=== PATIENT | male | born 1980 | race Caucasian/White ===

== ENCOUNTER 2016-12-11 12:13 | Emergency (ER) | payer OTHER, BC ==
[2016-12-11 12:48] VITALS: RESP 18; TEMP 97.4
[2016-12-11 13:25] LABS: HIV ANTIBODY NEGATIVE (N); HIV-1 P24 ANTIGEN NEGATIVE (N)
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
[2016-12-12 09:55] LABS: HEPATITIS B SURF AB QL Positive (())
== END 2016-12-11 12:56 | disposition home or self-care (01) ==
LOC: ER 12:13
DX: Z77.21 Contact with and (suspected) exposure to potentially hazardous body fluids (principal); Y99.0 Civilian activity done for income or pay
CPT/HCPCS: 86703; 86706; 99282

== ENCOUNTER 2018-11-30 09:15 | Inpatient (IN) ==
[2018-11-30] MEDS ORDERED: ONDANSETRON 4 MG/2 ML VIAL IVP ONE (09:36)
[2018-11-30] MEDS ORDERED: Sodium Chloride 0.9% 1,000 ML PRIMARY IV ONE ×3 (09:36→10:19)
[2018-11-30] MEDS ORDERED: ONDANSETRON 4 MG/2 ML VIAL ONE (09:40)
[2018-11-30 09:52] LABS: BASOPHILS # (AUTO) 0.01 10*3/UL; BASOPHILS % (AUTO) 0.1 % (0-1); EOSINOPHILS # (AUTO) 0 10*3/UL; EOSINOPHILS % (AUTO) 0 % (0-8); Hematocrit [HCT] 48.1 % (42.0-52.0); Hemoglobin [HGB] 17.3 g/dL (14.0-18.0); LYMPHOCYTES # (AUTO) 0.47 10*3/uL; MEAN CORPUSCULAR HEMOGLOBIN 30.8 PG (27-31); MEAN CORPUSCULAR VOLUME 85.7 FL (80-90); MEAN PLATELET VOLUME 11.3 FL (7.4-12.2); MONOCYTES # (AUTO) 1.06 10*3/UL (0.3-0.8); MONOCYTES % (AUTO) 6.6 % (5-15); NEUTROPHILS % (AUTO) 90.1 % (50-80); RED BLOOD COUNT 5.61 10^6/uL (4.70-6.10)
[2018-11-30] MEDS ORDERED: Metoclopramide Inj 10 MG/2 ML VIAL IVP ONE (10:03)
[2018-11-30 10:04] LABS: BLOOD UREA NITROGEN 18 mg/dL (7-22); SERUM ALBUMIN 5.1 g/dL (3.5-4.8)
[2018-11-30 10:08] LABS: PLATELET MORPHOLOGY COMMENT NORMAL MORPHOLOGY (NORM); RBC MORPHOLOGY COMMENT NORMAL MORPHOLOGY (NORM); WBC MORPHOLOGY COMMENT NORMAL MORPHOLOGY (NORM)
[2018-11-30 10:51] LABS: BILIRUBIN,URINE NEGATIVE (NEG); CLARITY,URINE CLEAR (CLEAR); COLOR,URINE YELLOW (Y); GLUCOSE, URINE (UA) NEGATIVE (NEG); OCCULT BLOOD,URINE NEGATIVE (NEG); PH,URINE >=9.0 (5.0-8.5); PROTEIN,URINE 30 mg/dl (NEG)
--- NOTE | 2018-11-30 11:04 | DI ---
EXAM: CT Abdomen and Pelvis With Intravenous Contrast CLINICAL HISTORY: Abdominal pain and vomiting. TECHNIQUE: Axial computed tomography images of the abdomen and pelvis with intravenous contrast. 75 cc of Isovue-300 IV contrast. Coronal and sagittal images were obtained and reviewed. COMPARISON: CT abdomen and pelvis dated 09/17/15 FINDINGS: Lung bases: Unremarkable. No consolidation. No effusions. ABDOMEN: Liver: Unremarkable. No mass. Gallbladder and bile ducts: Unremarkable. No calcified stones. No ductal dilation. Pancreas: Unremarkable. No mass. No ductal dilation. Spleen: Unremarkable. No splenomegaly. Adrenals: Unremarkable. No mass. Kidneys and ureters: Unremarkable. No solid mass. No hydronephrosis. Stomach and bowel: Mild diffuse fluid distention of small bowel loops with scattered air-fluid levels, which may represent mild ileus or enteritis. No evidence of bowel obstruction. No focal bowel wall thickening. The colon appears unremarkable. GE junction and stomach appear unremarkable. PELVIS: Appendix: The appendix appears normal. Bladder: Unremarkable. No visible stones. Reproductive: The prostate gland and seminal vesicles appear unremarkable. ABDOMEN and PELVIS: Intraperitoneal space: Unremarkable. No free air. No significant fluid collection. Bones/joints: No acute fracture. No dislocation. Soft tissues: Unremarkable. Vasculature: Unremarkable. No abdominal aortic aneurysm. Lymph nodes: Unremarkable. No enlarged lymph nodes. IMPRESSION: Mild diffuse fluid distention of small bowel loops with scattered air- fluid levels, which may represent mild ileus or enteritis. No evidence of bowel obstruction. No focal bowel wall thickening.
[2018-11-30 11:08] LABS: URINE SAMPLE TYPE CLEAN CATCH URINE
[2018-11-30] MEDS ORDERED: MORPHINE SULFATE 4 MG/1 ML IVP ONE (12:04)
[2018-11-30] MEDS ORDERED: MORPHINE SULFATE 4 MG/1 ML ONE (12:06)
--- NOTE | 2018-11-30 12:16 | PDOC ---
Past Medical History Tobacco Use: Never Smoker In the Past 12 Months, Have Used or Abuse Any of the Following Substance: None Medication / Allergies Home Medications: Home Medications Medication Instructions Recorded Confirmed Type Allergy Shots ASDIR 06/18/14 08/30/18 History clindamycin 1 %-benzoyl peroxide 5 1 applic TOPICAL BID #25 gm 11/22/17 11/30/18 Rx % topical gel ciclesonide HFA 160 mcg/actuation 160 mcg INH BID puff 08/30/18 11/30/18 History aerosol inhaler Dexlansoprazole [Dexilant] 30 mg PO .HS 09/16/18 11/30/18 History Allergies/Adverse Reactions: Allergies Allergy/AdvReac Type Severity Reaction Status Date / Time No Known Allergies Allergy Verified 11/30/18 09:17 Exam - Vitals Vital Signs: Vital Signs Temperature 96.9 F Temperature Source Temporal Artery Scan Pulse Rate [Pulse Oximeter] 106 Respiratory Rate 20 Blood Pressure [Left Arm] 120/83 Pulse Ox 98 Oxygen Delivery Method Room Air Height 5 ft 9 in Weight 130 lb Results - Labs CBC and BMP: 11/30/18 09:30 11/30/18 09:30 Assessment and Plan - Patient Problems (1) Vomiting Current Visit: Yes Status: Acute Code(s): R11.10 - Vomiting, unspecified (2) Nausea & vomiting Current Visit: Yes Status: Acute Code(s): R11.2 - Nausea with vomiting, unspecified (3) Abdominal pain Current Visit: No Status: Acute Onset Date: 09/13/15 Code(s): R10.9 - Unspecified abdominal pain (4) Colitis Current Visit: Yes Status: Acute Code(s): K52.9 - Noninfective gastroenteritis and colitis, unspecified (5) Colitis Current Visit: Yes Status: Acute Code(s): K52.9 - Noninfective gastroenteritis and colitis, unspecified
[2018-11-30] MEDS ORDERED: cefTRIAXone Inj 2 GM in Sodium Chloride 0.9% 100 ML IV SCH (13:00)
[2018-11-30] MEDS ORDERED: LIDOCAINE W/ SODIUM BICARB 0.5 ML SYR SUBD PRN (13:06)
[2018-11-30] MEDS ORDERED: MORPHINE SULFATE 2 MG/1 ML IVP PRN (13:06)
[2018-11-30] MEDS ORDERED: DOCUSATE 100 MG CAPSULE PO PRN (13:06)
[2018-11-30] MEDS ORDERED: CALCIUM CARBONATE 500 MG (TUMS) CHEWABLE TABLET PO PRN (13:06)
[2018-11-30] MEDS: PANTOPRAZOLE IV 40 MG VIAL IVP SCH (14:18)
[2018-11-30] MEDS: metroNIDAZOLE 500mg (Premix) 500 MG/100 ML BAG IV SCH ×2 (14:18→21:13)
[2018-11-30] MEDS: Lactated Ringers 1,000 ML PRIMARY IV SCH ×2 (14:19→21:14)
--- NOTE | 2018-11-30 15:21 | PDOC ---
HPI - History of Present Illness Date of Service: 11/30/18 Chief Complaint: Abdominal pain History of Present Illness: This very nice 38-year-old gentleman who states he has some stomach issues off and on this has happened in the past with cramping nausea and some vomiting but this time he got progressively worse and this morning was not able to go to work was seen in the ER and via CAT scan was found to have most likely a colitis picture with generalized tenderness and elevated white count and left shift no diarrhea no chest pain if he tries to eat or drink something that the pain comes back Past Medical History Medical History: GERD, he does get allergy shots Tobacco Use: Never Smoker In the Past 12 Months, Have Used or Abuse Any of the Following Substance: None Medication / Allergies Home Medications: Home Medications Medication Instructions Recorded Confirmed Type Allergy Shots ASDIR 06/18/14 08/30/18 History clindamycin 1 %-benzoyl peroxide 5 1 applic TOPICAL BID #25 gm 11/22/17 11/30/18 Rx % topical gel ciclesonide HFA 160 mcg/actuation 160 mcg INH BID puff 08/30/18 11/30/18 History aerosol inhaler Dexlansoprazole [Dexilant] 30 mg PO .HS 09/16/18 11/30/18 History Allergies/Adverse Reactions: Allergies Allergy/AdvReac Type Severity Reaction Status Date / Time No Known Allergies Allergy Verified 11/30/18 09:17 Review of Systems - Review of Systems All Systems: Reviewed & No Additional Complaints Except as Stated - Respiratory Respiratory: DENIES: Negative System Review, Cough, Sputum, Dyspnea At Rest, Dyspnea with Exertion, Pleuritic Pain, Hemoptysis, Wheezing, Other, See HPI - Cardiovascular Cardiovascular: DENIES: Negative System Review, Chest Pain, Edema, Syncope, Palpitations, Orthopnea, Paroxysmal Nocturnal Dyspnea, Other, See HPI - Gastrointestinal Gastrointestinal / Abdominal: REPORTS: Nausea, Vomiting, Abdominal Pain. DENIES: Diarrhea, Bloody Stool, Bright Red Blood per Rectum Exam - Vitals Vital Signs: Vital Signs Temperature 97.8 F Temperature Source Temporal Artery Scan Pulse Rate [Pulse Oximeter] 116 Respiratory Rate 22 Blood Pressure [Left Arm] 131/70 Pulse Ox 96 Oxygen Delivery Method Room Air Height 5 ft 9 in Weight 148 lb - General General Appearance: Cooperative, Mild Distress - Respiratory Respiratory Exam: POSITIVE: Clear to Auscultation - Bilaterally, Breathing Non Labored, Normal To Percussion, Normal to Percussion and Palpation - Cardiovascular Cardiovascular Exam: POSITIVE: RRR, No Murmur, No Clicks, No Gallops, No Rubs, PMI Non-Displaced - GI/Abdominal GI/Abdominal Exam: POSITIVE: No Hepatomegaly, No Splenomegaly. NEGATIVE: Distended, No Masses, Rebound, Positive for Ascites, Hepatomegaly Additional GI/Abdominal Exam Details: Generalized tenderness no rebound or guarding - Extremities Extremities Exam: POSITIVE: No Clubbing Present, No Edema Present, No Cyanosis Present Results - Labs CBC and BMP: 11/30/18 09:30 11/30/18 09:30 Assessment and Plan - Patient Problems (1) Abdominal pain Current Visit: No Status: Acute Onset Date: 09/13/15 Comment: Most likely colitis last bowel movement last night he is passing gas will start IV antibiotics Rocephin and Flagyl might need outpatient workup with colonoscopy with general surgery will repeat labs in a.m. treat pain with morphine Code(s): R10.9 - Unspecified abdominal pain (2) Vomiting Current Visit: Yes Status: Acute Comment: Antiemetics IV clear liquid diet Code(s): R11.10 - Vomiting, unspecified (3) Nausea & vomiting Current Visit: Yes Status: Acute Code(s): R11.2 - Nausea with vomiting, unspecified (4) Colitis Current Visit: Yes Status: Acute Code(s): K52.9 - Noninfective gastroenteritis and colitis, unspecified (5) Colitis Current Visit: Yes Status: Acute Code(s): K52.9 - Noninfective gastroenteritis and colitis, unspecified
--- NOTE | 2018-11-30 15:33 | PDOC ---
General Adult HPI - General Chief Complaint: Nausea / Vomiting / Diarrhea Stated Complaint: VOMITING Date Seen by Provider: 11/30/18 Time Seen by Provider: 09:20 Source: POSITIVE: Patient, Spouse Exam Limitations: POSITIVE: No limitations Nurse's Notes Reviewed & Considered: Yes - History of Present Illness Initial Comment: The patient is a 38-year-old male. He is brought to the emergency room by his . Patient and states that around 1:30 AM this morning the patient developed vomiting and "dry heaves ". Patient last ate around 10:30 PM last night. Patient has had no diarrhea. No known fevers. Patient complains of abdominal cramping. He took some Zofran earlier this morning. Patient has no history of previous abdominal surgery. No melena, hematochezia, hematemesis, dysuria or hematuria. He complains of some periumbilical abdominal pain. Have you received a tetanus shot in the past 10 years?: Yes Body Location Affected: REPORTS: Abdomen Timing: REPORTS: Gradual, Getting Worse Duration: <24 hours Severity: Moderate Quality: REPORTS: Cramping, "Pain" (Paraumbilical abdominal pain and cramping) Modifying Factors: improves with: Vomiting Similar Symptoms Previously: No Recent Care Received: REPORTS: Denies Any Prior Injuries Related to Current Complaint?: No - Patient Home Medications Home Medications: Home Medications Allergy Shots ASDIR 06/18/14 clindamycin 1 %-benzoyl peroxide 5 % topical gel 1 applic TOPICAL BID #25 gm 11/22/17 ciclesonide HFA 160 mcg/actuation aerosol inhaler 160 mcg INH BID puff 08/30/18 Dexlansoprazole [Dexilant] 30 mg PO .HS 09/16/18 - Patient Allergies Allergies/Adverse Reactions: Allergies Allergy/AdvReac Type Severity Reaction Status Date / Time No Known Allergies Allergy Verified 11/30/18 09:17 Past Medical History - heen HEENT History: Denies History Additional HEENT History: WEARS CONTACT Cardiovascular History: Denies History Respiratory History: Asthma, Other (please comment) Additional Respiratory History: ENVIRONMENTAL ALLERGIES Gastrointestinal History: GERD Genitourinary History: Denies History Endocrine History: Denies History Musculoskeletal History: Back Injury Prosthesis or Implant: No Additional Musculoskeletal History: LEFT SCAPULA SURGERY Neurological History: Motion Sickness Blood Disorders: Denies History Psychiatric History: Anxiety Disorders History of Sexually Transmitted Diseases: No Male Reproductive History: Denies History Cancer History: Denies History In Past Year Been Physically Harmed or Verbally Threatened: No History of MDRO: Yes History of Other Communicable Diseases: No Tobacco Use: Never Smoker Alcohol Use: Rarely In the Past 12 Months, Have Used or Abuse Any Substance: None Previous Surgical History: Yes Type / Date of Surgery: WISDOM TEETH EXTRACTION/ EGD/ LEFT SCAPULA Anesthesia Reactions: Yes (PONV) Malignant Hyperthermia: No Significant Family History: No pertinent family hx Past Medical History Reviewed: Reviewed - No Changes ROS - Limitations ROS Limitations: No Limitations Constitution: REPORTS: Denies Symptoms Cardiovascular: REPORTS: Denies Cardiac Symptoms Respiratory: REPORTS: Denies Resp Symptoms Neurological: REPORTS: Denies Neuro Symptoms Gastrointestinal: REPORTS: Abdominal Pain, Nausea, Vomitting Endocrine: REPORTS: Denies Symptoms Musculoskeletal: REPORTS: Denies MS Symptoms Genitourinary: REPORTS: Denies Symptoms Eyes: REPORTS: Denies Symptoms ENT: REPORTS: Denies Symptoms Skin: REPORTS: Denies Skin Symptoms Lympathic: REPORTS: Denies Lympathic Symptoms Immunologic: POSITIVE: Denies Symptoms Psychiatric: POSITIVE: Denies Psych Symptoms General Adult Exam - General Appearance General Appearance: POSITIVE: Alert, Cooperative, No Evidence of Trauma, Moderate Distress (Due to persistent vomiting and retching and associated paraumbilical abdominal pain and cramping). NEGATIVE: No Acute Distress - HEENT HEENT: POSITIVE: Head Inspection Nml, Eyes Inspection Nml, Ears Inspection Nml, Nose Inspection Nml, Oral/Dental Inspect. Nml, Pharynx Inspect. Nml, PERRL, EOMI - Pupils Pupil Size: 3 mm: Bilateral (PERRLA) - Neck Neck: POSITIVE: Normal Inspection, Thyroid Normal - Respiratory Respiratory: POSITIVE: No Respiratory Distress, Breath Sounds Normal, Chest Non- Tender - Cardiovascular Cardiovascular: POSITIVE: Regular Rate & Rhythm, No Murmur, No Gallop, PMI Normal Peripheral Pulses: Radial (R): 2+, Radial (L): 2+ - Abdomen Abdomen: Soft: (All Quadrants), Normal Bowel Sounds: (All Quadrants), No Splenomegaly: (All Quadrants), No Hepatomegaly: (All Quadrants), No Guarding: (All Quadrants), No Rebound: (All Quadrants), No Palpable Pulse: (All Quadrants), No Palpabale Mass: (All Quadrants), No Distention: (All Quadrants), No Rigidity: (All Quadrants), Tenderness Noted: (All Quadrants) Additional Abdominal Details: Abdominal examination shows bowel sounds to be active. Patient complains of some discomfort on direct palpation over the paraumbilical area and some paraumbilical cramping. No masses, organomegaly or rebound. - Back Back: POSITIVE: Normal Inspection - Skin Skin: POSITIVE: Normal Color, Warm, Dry, No Rash - Extremities Extremity: Non-Tender: (All Extremities), Normal ROM: (All Extremities), Normal Inspection: (All Extremities) - Neurological / Psychological Neurological: POSITIVE: Affect Apporpriate, Oriented X3, senior partner Normal As Tested, Motor Normal, Sensation Normal Images - Complete Complete: 1 - Area of abdominal pain and cramping General Adult Progress - Results Reviewed by me Xrays/CTs/US Reviewed by me: Yes Discussed with Radiologist: Yes Radiology Findings: CT scan abdomen and pelvis with IV contrast shows "mild diffuse fluid distention of small bowel loops with scattered air-fluid levels which may represent mild ileus or enteritis; no evidence of bowel obstruction". Lab Results Reviewed by Me: Yes Lab Results:: Laboratory Results 11/30/18 11/30/18 11/30/18 09:30 09:30 09:30 WBC 15.98 H RBC 5.61 Hgb 17.3 Hct 48.1 MCV 85.7 MCH 30.8 MCHC 36.0 RDW Std Deviation 39.0 RDW Coeff of [place] 12.4 Plt Count 217 MPV 11.3 Immature Gran % (Auto) 0.3 Neut % (Auto) 90.1 H Lymph % (Auto) 2.9 L [place] % (Auto) 6.6 Eos % (Auto) 0 Baso % (Auto) 0.1 Immature Gran # (Auto) 0.04 Neut # (Auto) 14.40 Lymph # (Auto) 0.47 [place] # (Auto) 1.06 H Eos # (Auto) 0 Baso # (Auto) 0.01 WBC Morphology Comment Normal morphology Plt Morphology Comment Normal morphology RBC Morph Comment Normal morphology Sodium 143 Potassium 4.4 Chloride 104 Carbon Dioxide 23 Anion Gap 16 BUN 18 Creatinine 0.9 Estimated GFR > 60 BUN/Creatinine Ratio 20.00 Glucose 131 H Calculated Osmolality 299.0 H Calcium 10.6 Magnesium 1.7 Total Bilirubin 1.3 H AST 29 ALT 29 Alkaline Phosphatase 73 Total Protein 8.0 Albumin 5.1 H Globulin 2.9 Albumin/Globulin Ratio 1.70 Amylase 66 Lipase 127 Ur Collection Type Urine Color Urine Clarity Urine pH Ur Specific [place] Urine Protein Urine Glucose (UA) Urine Ketones Urine Occult Blood Urine Nitrate Urine Bilirubin Urine Urobilinogen Ur Leukocyte Esterase Urine RBC Urine WBC Ur Squamous Epith Cells Ur Renal Epithelial Cell Urine Crystals Urine Bacteria Urine Casts Urine Mucus Urine Trichomonas Urine Yeast Ur Culture Indicated? 11/30/18 10:47 WBC RBC Hgb Hct MCV MCH MCHC RDW Std Deviation RDW Coeff of [place] Plt Count MPV Immature Gran % (Auto) Neut % (Auto) Lymph % (Auto) [place] % (Auto) Eos % (Auto) Baso % (Auto) Immature Gran # (Auto) Neut # (Auto) Lymph # (Auto) [place] # (Auto) Eos # (Auto) Baso # (Auto) WBC Morphology Comment Plt Morphology Comment RBC Morph Comment Sodium Potassium Chloride Carbon Dioxide Anion Gap BUN Creatinine Estimated GFR BUN/Creatinine Ratio Glucose Calculated Osmolality Calcium Magnesium Total Bilirubin AST ALT Alkaline Phosphatase Total Protein Albumin Globulin Albumin/Globulin Ratio Amylase Lipase Ur Collection Type Clean catch urine Urine Color Yellow Urine Clarity Clear Urine pH >=9.0 H Ur Specific [place] 1.010 Urine Protein 30 A Urine Glucose (UA) Negative Urine Ketones >=160 Urine Occult Blood Negative Urine Nitrate Negative Urine Bilirubin Negative Urine Urobilinogen 1.0 Ur Leukocyte Esterase Negative Urine RBC None Urine WBC None Ur Squamous Epith Cells None Ur Renal Epithelial Cell None Urine Crystals None Urine Bacteria None Urine Casts None Urine Mucus Rare Urine Trichomonas None Urine Yeast None Ur Culture Indicated? Culture not set CBC and BMP: 11/30/18 09:30 11/30/18 09:30 - Patient's Progress Pain Medication Addressed: POSITIVE: Yes (Patient given 4 mg morphine sulfate for abdominal pain) School/Work Release Addressed: POSITIVE: Not Applicable Re-Examine Time: 12:05 Re-Examine Comment: Patient given somewhat in excess of 2 L of normal saline IV. He was medicated for his nausea with 4 mg of Zofran IV and 10 mg of Reglan IV. He was given 4 mg of morphine sulfate for his pain. Had 2 episodes of vomiting while in the emergency room. Patient attempted to take some water in the emergency room, and this precipitated an unacceptable amount of nausea and abdominal cramping. Alternatives of treatment discussed with patient and the patient's ; in view of lack of response in the emergency room. It was decided to admit patient for further observation and treatment. Status: POSITIVE: Unchanged, Re-Examined Antibiotics Given: No - Consult Consult (If Yes, Name of Consulting MD & Time Called): Yes (Dr. Noe, hospitalist, [id number]) Consulting MD will see pt:: POSITIVE: [facility] [place] Admit Counseled: POSITIVE: Patient, Family (), RE: Lab Results, RE: Radiology Results, RE: DX, RE: Need for F/U Patient Care Time - Estimated PCT Patient Care Time (In Minutes): 50 Vital Signs - Recent Vital Signs Vital Signs: Vital Signs (Last 8 hours) Temp Pulse Resp BP Pulse Ox 11/30/18 09:37 96.9 F 106 H 20 120/83 98 - VS Reviewed Vital Signs Reviewed: Yes Discharge Clinical Impression: Abdominal pain, Nausea and vomiting Condition: Fair Date Decision to Admit to Inpatient: 11/30/18 Time Decision to Admit to Inpatient: 12:05
[2018-11-30] MEDS ORDERED: CICLESONIDE 160 MCG INH SCH (21:00)
[2018-11-30] MEDS: ONDANSETRON 4 MG/2 ML VIAL IVP PRN (23:59)
[2018-12-01] MEDS ORDERED: HYDROmorphone 2 MG/1 ML IVP PRN (03:27)
[2018-12-01 04:50] LABS: BASOPHILS # (AUTO) 0.01 10*3/UL; BASOPHILS % (AUTO) 0.2 % (0-1); EOSINOPHILS # (AUTO) 0 10*3/UL; EOSINOPHILS % (AUTO) 0 % (0-8); Hematocrit [HCT] 42.2 % (42.0-52.0); Hemoglobin [HGB] 14.3 g/dL (14.0-18.0); LYMPHOCYTES # (AUTO) 0.52 10*3/uL; MEAN CORPUSCULAR HEMOGLOBIN 30.4 PG (27-31); MEAN CORPUSCULAR HGB CONC 33.9 g/dL (33-37); MEAN CORPUSCULAR VOLUME 89.8 FL (80-90); MEAN PLATELET VOLUME 10.7 FL (7.4-12.2); MONOCYTES # (AUTO) 0.56 10*3/UL (0.3-0.8); MONOCYTES % (AUTO) 9.1 % (5-15); NEUTROPHILS # (AUTO) 5.08 10*3/UL; NEUTROPHILS % (AUTO) 82.3 % (50-80)
[2018-12-01] MEDS: metroNIDAZOLE 500mg (Premix) 500 MG/100 ML BAG IV SCH (04:56)
[2018-12-01] MEDS: ONDANSETRON 4 MG/2 ML VIAL IVP PRN (04:57)
[2018-12-01 05:05] LABS: BLOOD UREA NITROGEN 13 mg/dL (7-22); BUN/CREATININE RATIO 16.25 (6-20); SERUM ALBUMIN 3.4 g/dL (3.5-4.8)
[2018-12-01 05:11] LABS: PLATELET MORPHOLOGY COMMENT NORMAL MORPHOLOGY (NORM); RBC MORPHOLOGY COMMENT NORMAL MORPHOLOGY (NORM); WBC MORPHOLOGY COMMENT NORMAL MORPHOLOGY (NORM)
[2018-12-01 07:42] VITALS: BP 119/70; RESP 20; TEMP 97.2; O2SAT 97
[2018-12-01] MEDS: Lactated Ringers 1,000 ML PRIMARY IV SCH (08:25)
--- NOTE | 2018-12-01 09:46 | PDOC(PROG) ---
Interval History: Patient now feels much better this morning he had good rest. In the middle the night he had right lower quadrant cramping we had to switch the morphine to dye lauded at this worked very well when he got some rest and sleep. He is passing gas and has no pain at present time. His white count is normalized Objective : Data - Labs CBC and BMP: 12/01/18 04:40 12/01/18 04:40 Objective : Exam - General General Appearance: Cooperative - Respiratory Respiratory Exam: Clear to Auscultation - Bilaterally, Breathing Non Labored, Normal To Percussion, Normal to Percussion and Palpation - Cardiovascular Cardiovascular Exam: RRR, No Murmur, No Clicks, No Gallops, No Rubs, PMI Non- Displaced - GI/Abdominal GI/Abdominal Exam: Normal Bowel Sounds, Non Tender, Non Distended, Soft Assessment and Plan - Patient Problems (1) Abdominal pain Current Visit: No Status: Acute Onset Date: 09/13/15 Comment: Much better today physical exam is improved right lower quadrant pain is resolved. I told patient he could have some clear liquids and advance his diet if he feels like it he is passing gas he has good bowel sounds I will also consult Dr. rob Slater for his input. White count is now normalized Code(s): R10.9 - Unspecified abdominal pain (2) Vomiting Current Visit: Yes Status: Acute Code(s): R11.10 - Vomiting, unspecified (3) Nausea & vomiting Current Visit: Yes Status: Acute Code(s): R11.2 - Nausea with vomiting, unspecified (4) Colitis Current Visit: Yes Status: Acute Code(s): K52.9 - Noninfective gastroe nteritis and colitis, unspecified (5) Colitis Current Visit: Yes Status: Acute Code(s): K52.9 - Noninfective gastroenteritis and colitis, unspecified
[2018-12-01] MEDS: PANTOPRAZOLE IV 40 MG VIAL IVP SCH (09:49)
--- NOTE | 2018-12-01 10:59 | CONSULT ---
Consult Note - Consult Consult Date: 12/01/18 Reason for Consult: PreOp Consulation : General Surgery Requesting Physician: Dr. Corrales Primary Care Provider: Parish Curtis MD - History of Present Illness History of Present Illness: This is a 38-year-old male I been asked to evaluate for right lower quadrant abdominal pain. Patient started with kind generalized nausea feeling. He then got nauseated started on up on Sunday. Came in the emergency department last night on November 30. Patient is having right lower quadrant abdominal pain. This is sharp in nature. Going to the hospitalist see did have some rebound tenderness. Patient was started on Rocephin and Flagyl. Patient's abdominal pain has abated this morning. Patient has 16,000 white count last night. It is 6000 today. There is no left shift. CT scan of the abdomen and pelvis showed some mild dilute small bowel consistent with an ileus. Review of Systems - Review of Systems All Systems: Reviewed & No Additional Complaints Except as Stated Past Medical History Medical History: GERD, he does get allergy shots Tobacco Use: Never Smoker In the Past 12 Months, Have Used or Abuse Any of the Following Substance: None Medication / Allergies Home Medications: Home Medications Medication Instructions Recorded Confirmed Type Allergy Shots ASDIR 06/18/14 08/30/18 History clindamycin 1 %-benzoyl peroxide 5 1 applic TOPICAL BID #25 gm 11/22/17 11/30/18 Rx % topical gel ciclesonide HFA 160 mcg/actuation 160 mcg INH BID puff 08/30/18 11/30/18 History aerosol inhaler Dexlansoprazole [Kapidex] 30 mg PO .HS 09/16/18 11/30/18 History Allergies/Adverse Reactions: Allergies Allergy/AdvReac Type Severity Reaction Status Date / Time No Known Allergies Allergy Verified 11/30/18 09:17 Results - Labs CBC and BMP: 12/01/18 04:40 12/01/18 04:40 Exam - Vitals Vital Signs: Vital Signs Temperature 97.2 F Temperature Source Temporal Artery Scan Pulse Rate [Pulse Oximeter] 87 Pulse Rate 67 Respiratory Rate 20 Blood Pressure [Left Arm] 119/70 Pulse Ox 97 Oxygen Flow Rate 1 Oxygen Delivery Method Nasal Cannula Height 5 ft 9 in Weight 148 lb 8 oz - GI/Abdominal GI/Abdominal Exam: POSITIVE: Normal Bowel Sounds, Non Tender, Non Distended, Soft Assessment and Plan - Patient Problems (1) Right lower quadrant abdominal pain Current Visit: Yes Status: Acute Code(s): R10.31 - Right lower quadrant pain - Assessment / Plan Additional Assessment/Plan Details: At this point the leading diagnosis would be an early acute appendicitis. Been treated with antibiotics. I think we should continue with treatment of antibiotics. We'll send him home on orals. Be on Bactrim DS one tablet twice a day. Be on Flagyl 250 one tablet 3 times a day. If his pain should come back he will come back to the emergency department.
--- NOTE | 2018-12-15 19:18 | DCSUMMARY ---
Hospitalization Summary Hospital Course: Final Discharge Diagnosis: Early appendicitis with abdominal pain Diagnostic Data, Laboratory Data, and Procedures of Signifigance: CBC and BMP 12/01/18 04:40 12/01/18 04:40 History and Physical pertinent to Admission: Past Medical History Medical History: GERD, he does get allergy shots Tobacco Use: Never Smoker In the Past 12 Months, Have Used or Abuse Any of the Following Substance: None Course of Hospitalization: This very nice 38-year-old gentleman who was admitted with some right lower quadrant pain and was called colitis on CT scan patient had a mildly elevated white count and some tenderness in the right lower quadrant. Was started on IV antibiotics I consult with Dr. rob Slater general surgery which examined the patient and decided it was early appendicitis and since the pain was resolved he recommended that the patient could go home on oral antibiotics he called in the prescription to the pharmacy which was closed that day but the document specialist happened to be in the pharmacy which is related to the patient and patient was discharged home by Dr. rob Slater. He also arranged follow-up in his office On the date of discharge, the patient was examined: Please see my soap note on date of discharge for physical exam Assessment and Plan: 1. As per discharge assessments above 2. Disposition: Home 3. Condition on discharge, stable and improved. 4. Diet: regular diet 5. Activities: resume normal activities 6. Follow-Up: 1. [PCP] 2. With Dr. rob Slater 7. Medications at the Time of Discharge: Home Medications Medication Instructions Recorded Confirmed Type Allergy Shots ASDIR 06/18/14 08/30/18 History ciclesonide HFA 160 mcg/actuation 160 mcg INH BID puff 08/30/18 12/05/18 History aerosol inhaler Dexlansoprazole [Kapidex] 30 mg PO .HS 09/16/18 12/05/18 History Clindamycin Phos/Benzoyl Perox 1 applic TOPICAL BID PRN 12/05/18 12/05/18 History [Clindamycin-Benzoyl Perox 1-5%] Metronidazole [Flagyl] 375 mg PO TID 12/05/18 12/05/18 History Sulfameth/Trimeth 800/160 Tab 1 tab PO BID 12/05/18 12/05/18 History [Bactrim DS 800/160 Tab] 8. Time, care, counseling and coordination of care for this discharge is greater than 30 minutes. Exam - Vitals Vital Signs: Vital Signs Temperature 97.2 F Temperature Source Temporal Artery Scan Pulse Rate [Pulse Oximeter] 87 Pulse Rate 67 Respiratory Rate 20 Blood Pressure [Left Arm] 119/70 Pulse Ox 97 Oxygen Flow Rate 1 Oxygen Delivery Method Nasal Cannula Height 5 ft 9 in Weight 148 lb 8 oz Patient Problems - Patient Problem List (1) Abdominal pain Status: Acute Onset Date: 09/13/15 Code(s): R10.9 - Unspecified abdominal pa in Category: Medical (2) Vomiting Status: Acute Code(s): R11.10 - Vomiting, unspecified Category: Medical (3) Nausea & vomiting Status: Acute Code(s): R11.2 - Nausea with vomiting, unspecified Category: Medical (4) Colitis Status: Acute Code(s): K52.9 - Noninfective gastroenteritis and colitis, unspecified Category: Medical (5) Colitis Status: Acute Code(s): K52.9 - Noninfective gastroenteritis and colitis, unspe cified Category: Medical
== END 2018-12-01 12:52 | disposition home or self-care (01) | DRG 395 ==
LOC: ER 09:15 → MED/SURG 12:57
PROVIDERS: ADMIT Internal Medicine; ATTEND Internal Medicine